=== PATIENT | female | born 1990 | race Caucasian/White ===

== ENCOUNTER 2017-05-07 21:46 | Inpatient (IN) | payer OTHER ==
[~2017-05-07] VITALS: Ht 149.9 cm; Wt 54.9 kg
[~2017-05-07 21:46] MED LIST: ANUSOL HC30 GM TOP; HEMORRHOIDAL TOP; [UNRECOGNIZED DRUG - OTHER] TOP
[2017-05-07 23:22] LABS: ABSOLUTE BASOPHIL COUNT 0 /CUMM (0.0-0.2); ABSOLUTE EOSINOPHIL COUNT 0.1 /CUMM (0.0-0.7); ABSOLUTE MONOCYTE COUNT 1.2 /CUMM (0.10-0.60); BASOPHIL % 0.3 % (0.0-2.0); EOSINOPHIL % 0.8 % (0-5); GRANULOCYTE % 74.8 % (42.2-75.2); MEAN CORPUSCULAR HGB 30.4 PG (27.0-31.0); MEAN CORPUSCULAR HGB CONC 33.3 G/DL (33.0-37.0); MEAN CORPUSCULAR VOLUME 91.2 FL (81.0-99.0); MEAN PLATELET VOLUME 11.1 FL (7.4-10.4); PLATELET COUNT 188 /CUMM (130-400); RBC DISTRIBUTION WIDTH 13.9 % (11.5-14.5); RED BLOOD CELL CT 4.06 /CUMM (4.20-5.40); WHITE BLOOD CELL COUNT 13.3 /CUMM (4.8-10.8)
[2017-05-07 23:45] VITALS: BP 122/76
--- NOTE | 2017-05-08 09:46 | PN- Obstetrical ---
Subjective Subjective: NO COMPLAINTS Objective Last 24 Hrs of Vital Signs/I&O Vital Signs Date Time Temp Pulse Resp B/P B/P Pulse O2 O2 Flow FiO2 Mean Ox Delivery Rate 05/07 2345 122/76 Intake & Output 05/08 1600 05/08 0800 05/08 0000 Intake Total Output Total Balance Patient 121 lb Weight Physical Exam: PETHIN WF ABD SOFT NTIN NAD Obstetric Exam Dilation (cm): 2 Effacement (%): 50 Station: 0 Membranes: SROM Fluid: clear Multiple Gestation? No Contractions: Q 8 Assessment/Plan Assessment/Plan ASSESS TERM PRERGNANCY ZSROM PLAN AMPICILLIN PITOCIN
--- NOTE | 2017-05-08 14:03 | PN- Obstetrical ---
Subjective Subjective: plan of contractions Objective Last 24 Hrs of Vital Signs/I&O Vital Signs Date Time Temp Pulse Resp B/P B/P Pulse O2 O2 Flow FiO2 Mean Ox Delivery Rate 05/07 2345 122/76 Intake & Output 05/08 1600 05/08 0800 05/08 0000 Intake Total Output Total Balance Patient 121 lb Weight Physical Exam: Thin white female HEENT anicteric Lungs clear Abdomen soft nontender estimated weight 3000 g Obstetric Exam Dilation (cm): 2 Effacement (%): 80 Station: 0 Membranes: SROM Fluid: clear Multiple Gestation? No Contractions: q 3 minutes Assessment/Plan Assessment/Plan Assessment is term intolerant to Pitocin ruptured membranes with positive group B strep but patient is making progress without Pitocin plan is to observe continue to observe without Pitocin
--- NOTE | 2017-05-08 17:06 | History & Physical ---
General Information and HPI MD Statement: I have seen and personally examined KELSEY OLIVIA and documented this H&P. The patient is a 26 year old female at [] weeks and [] days gestation who presented with a chief complaint of []. Spontaneous rupture membranes clear noted to have group B strep positive History of Present Illness: 26-year-old 1 para 0 presents ruptured membranes I had irregular contractions throughout the evening Pitocin was started in the morning patient had a deep deceleration for 8 minutes on the recovered patient had a reactive tracing expectant management patient had contractions every 3-4 minutes I without cervical change we had some Pitocin once again patient had late decelerations plan was then made for section Allergies/Medications Allergies: Coded Allergies: NO KNOWN ALLERGIES (NONE 05/07/17) Home Med list Dibucaine (Hemorrhoidal & Topical Analgesic) 1% OIN 1 JHON TOP TID PRN PAIN Hydrocortisone (Anusol HC) 30 GM CRM 1 JHON TOP BID HEMMORHOID apply to affected area(s) 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 Last Menstrual Period: Unknown 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: none Medical History Neurological: NONE EENT: NONE Cardiovascular: NONE Respiratory: NONE Gastrointestinal: NONE Hepatic: NONE Renal: NONE Musculoskeletal: NONE Psychiatric: NONE Endocrine: NONE Blood Disorders: NONE Cancer(s): NONE 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: 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 Surgical History Pertinent Surgical History: non-contributory Past Family/Social History Psychosocial History Smoking Status: Current Everyday Smoker Review of Systems Review of Systems: Is 13 point review of systems as stated in HPI Exam & Diagnostic Data Last 24 Hrs of Vital Signs/I&O Vital Signs Date Time Temp Pulse Resp B/P B/P Pulse O2 O2 Flow FiO2 Mean Ox Delivery Rate 05/07 2345 122/76 Intake & Output 05/08 1600 05/08 0800 05/08 0000 Intake Total Output Total Balance Patient 121 lb Weight Obstetric Exam Wgt Gained During : 11 Pelvimetry: Untested Dilation (cm): 2 Effacement (%): 80 Station: 0 Membranes: SROM Fluid: clear Fundal Height (cm): 30 Multiple Gestation? No Contractions: Every 2-3 minutes Patient for Induction? Yes Gonzalez Score Gonzalez Score Response Value Cervix Position: anterior 2 Cervix Consistency: soft 2 Cervix Effacement: >80% 3 Cervix Dilation: 1-2 cm 1 Total 8 Labs Blood Type & Rh: A+ Antibody Screen: negative Hct/Hgb & Platelets #1: /to 15 Hct/Hgb & Platelets #2: /161 Rubella: Immune VDRL #1: Nonreactive VDRL #2: Nonreactive HbsAg: Negative HIV #1: Negative HIV #2 Negative 1 Hr P Group B Strep: Positive Initial Ultrasound: Normal Anatomy Ultrasound: Normal Genetic Testing: Negative Assessment/Plan As Ranked By This Provider Problem List: 1. Core Measures/Miscellaneous Venous Thromboembolism VTE Risk Factors: / VTE Contraindications: No Contraindications VTE Diagnosis: No Beta Uyen Is Beta Uyen a Home Med? No Antibiotics Is Patient on Antibiotics? No
--- NOTE | 2017-05-09 09:02 | Operative Report ---
Operative/Inv Procedure Report Surgery Date: 05/08/17 Name of Procedure: Primary low flap transverse section via Pfannenstiel skin incision Pre-Operative Diagnosis: Term rupture membranes nonreassuring heart tracing Post-Operative Diagnosis: Same thick meconium noted and a very flat pelvis with a prominent sacral promontory patient has a contracted pelvis should not labor Estimated Blood Loss: 500 Surgeon/Radiologic Electronic Specialist: CORTNEY KAPADIA,LIBBY Boothe and Dr. Ab Adkins Anesthesia: block Operative/Procedure Note Note: Procedure note patient was taken to the operating room placed supine position after adequate skin testing spinal narcotic the abdomen was prepped draped so fashion once again skin testing was performed and found to be adequate for surgery I an adequate timeout was agreed upon by all parties on the skin was cut carried through an Pfannenstiel skin incision 2 fingerbreadths above the symphysis pubis in the midline carried down to the rectus fascia. Patient tolerated this well peritoneum was entered bluntly low bladed [place] was placed lower and incision the visceral peritoneum of the uterus was developed bluntly and sharply and the bladder blade was replaced to protect the bladder flap in the lower uterine segment uses neck the uterus was entered with the back of knife thick meconium was noted the uterus was dissected bluntly all instruments removed from the field patient tolerated that well on the close of the clamped cut and infant was handed fast food shift lead was waiting delivering to aid in resuscitation segment of the cord was sent for cord pH placenta will be sent to pathology the uterus was R was wiped clean with 2 wet dry laps to ensure was free of adherent membranes was oversewn running locking suture was indicated interrupted [id number] after the second layer had been applied using running locking suture hemostasis was apparent the abdomen was irrigated close amounts warm sounds were clear I at this point it was noted that the patient has a very flat pelvis a very prominent sacral promontory patient will be informed of same postoperatively the abdomen was area close amounts warm saline the incision was reexamined and found to be hemostatic the peritoneum was reapproximated 0 the fascia was reapproximated to continue sutures #1 stitch the Bovie coagulation of the subcutaneous tissue on achieves hemostasis patient tolerated that well at this point the skin was reapproximated using betty sterile dressing was applied on the urine was clear the counts correct mother and infant were transferred recovery room awake alert
--- NOTE | 2017-05-09 09:17 | PN- Post Delivery/GYN ---
Subjective Subjective: Vision I discussed status of patient stated that last week she had taken Tylenol with Codeine for her back and knee pain on she had purchased this on on the street tearful Objective Last 24 Hrs of Vital Signs/I&O As per her paper chart Physical Exam: Thin white female crying Abdomen soft distention Incision on a dressing removed with some drainage bluntly otherwise staple line intact Fundus firm nontender Lochia minimal Extremity is +1 edema negative Homans Assessment/Plan Assessment/Plan Assessment status post primary low flap transverse section for nonreassuring tracing Plan advance diet advance ambulation
[2017-05-09 09:48] LABS: ABSOLUTE BASOPHIL COUNT 0 /CUMM (0.0-0.2); ABSOLUTE EOSINOPHIL COUNT 0 /CUMM (0.0-0.7); ABSOLUTE GRANULOCYTE CT 19.8 /CUMM (1.4-6.5); ABSOLUTE MONOCYTE COUNT 1.4 /CUMM (0.10-0.60); BASOPHIL % 0 % (0.0-2.0); EOSINOPHIL % 0 % (0-5); GRANULOCYTE % 85.2 % (42.2-75.2); HEMATOCRIT 32.3 % (37-47); MEAN CORPUSCULAR HGB 30.2 PG (27.0-31.0); MEAN CORPUSCULAR HGB CONC 32.9 G/DL (33.0-37.0); MEAN CORPUSCULAR VOLUME 91.7 FL (81.0-99.0); MEAN PLATELET VOLUME 12.6 FL (7.4-10.4); PLATELET COUNT 165 /CUMM (130-400); RBC DISTRIBUTION WIDTH 14.2 % (11.5-14.5); RED BLOOD CELL CT 3.52 /CUMM (4.20-5.40)
[2017-05-09 10:28] LABS: WHITE BLOOD CELL COUNT 23.2 /CUMM (4.8-10.8)
[2017-05-10] MEDS ORDERED: PERCOCET 5-3251 EACH PO (09:10)
[2017-05-10] MEDS ORDERED: IBUPROFEN800 M1 PO (09:10)
== END 2017-05-10 12:00 | DRG 540 ==
LOC: CBCO 21:46 → GNO 22:40
PROVIDERS: ADMIT Specialist
PROC: 10D00Z1 Extraction of Products of Conception, Low, Open Approach (ICD-10-PCS; principal; 2017-05-08)
DX: O99.824 Streptococcus B carrier state complicating childbirth (principal); O76 Abnormality in fetal heart rate and rhythm complicating labor and delivery; Z3A.37 37 weeks gestation of pregnancy; Z37.0 Single live birth; O99.334 Smoking (tobacco) complicating childbirth; O77.0 Labor and delivery complicated by meconium in amniotic fluid; O33.0 Maternal care for disproportion due to deformity of maternal pelvic bones
CPT/HCPCS: GNOP; GNOS; 36415; 80307; 81001; 84112; 87086; 87389; 88307; G0463; J0131; J0290; J0690; J1200; J1650; J1885; J2765; J7120